=== PATIENT | male | born 1990 | race Caucasian/White ===

== ENCOUNTER 2024-03-29 00:46 | Inpatient (IN) | payer OTHER ==
[~2024-03-29] VITALS: Ht 172.7 cm; Wt 79.2 kg
[2024-03-29 01:49] LABS: APPEARANCE,URINE CLEAR (CLEAR); BILIRUBIN,URINE NEGATIVE (NEGATIVE); COLOR,URINE YELLOW (YELLOW); GLUCOSE, URINE (UA) NEGATIVE (NEGATIVE); KETONES,URINE NEGATIVE (NEGATIVE); LEUKOCYTE ESTERASE ,URINE NEGATIVE (NEGATIVE); NITRATE,URINE NEGATIVE (NEGATIVE); OCCULT BLOOD,URINE NEGATIVE (NEGATIVE); PROTEIN,URINE TRACE mg/dL (NEGATIVE); UROBILINOGEN,URINE <=1.0 mg/dL (<=1.0)
[2024-03-29] MEDS: ACETAMINOPHEN 500 MG TABLET PO ONE (02:06)
[2024-03-29] MEDS: MORPHINE SULFATE 2 MG/ML SYRINGE IVP ONE (02:29)
[2024-03-29 02:36] LABS: BASOPHILS % (AUTO) 0.3 % (0.0-2.0); EOSINOPHILS % (AUTO) 1.6 % (1.0-6.0); HEMATOCRIT 42.5 % (41-53); HEMOGLOBIN 14.3 g/dL (13.5-17.5); LYMPHOCYTES # (AUTO) 2.8 K/uL (1.0-4.8); LYMPHOCYTES % (AUTO) 25.6 % (22.0-44.0); MEAN CORPUSCULAR HGB CONC 33.7 G/dL (31.0-37.0); MEAN CORPUSCULAR VOLUME 86 fL (80-100); MONOCYTES # (AUTO) 0.8 K/uL (0.1-1.0); MONOCYTES % (AUTO) 7.4 % (2.0-9.0); NEUTROPHILS % (AUTO) 65.1 % (40.0-70.0); PLATELET COUNT (AUTO) 213 K/uL (150-450); RED BLOOD CELL COUNT(AUTO) 4.94 MIL/uL (4.50-5.90); RED CELL DISTRIBUTION WIDTH 14.2 % (11.5-14.5); WHITE BLOOD COUNT (AUTO) 10.7 K/uL (4.5-11.0)
[2024-03-29 02:47] LABS: ANION GAP 7 mmol/L (8-16); CALCIUM, TOTAL 8.4 mg/dL (8.8-10.5); CARBON DIOXIDE 30 mmol/L (22-29); CHLORIDE 104 mmol/L (98-107); CREATININE 1.05 mg/dL (0.60-1.30); GLOMERULAR FILTR. RATE CALC > 60 mL/min (>60); GLUCOSE,RANDOM 95 mg/dL (70-110); POTASSIUM 3.9 mmol/L (3.5-5.1); SODIUM SERUM 141 mmol/L (136-145); UREA NITROGEN, BLOOD 13 mg/dL (7-18)
[2024-03-29 02:52] LABS: TROPONIN I-HIGH SENSITIVITY 11 ng/L (<76)
[2024-03-29 03:00] LABS: B-TYPE NATRIURETIC PEPTIDE 10 pg/mL (0-100)
[2024-03-29 03:01] LABS: CREATINE KINASE, TOTAL ONLY 236 U/L (39-308)
[2024-03-29] MEDS ORDERED: ONDANSETRON HCL 4 MG/2 ML VIAL IVP PRN (05:30)
[2024-03-29 06:55] LABS: TROPONIN I-HIGH SENSITIVITY 12 ng/L (<76)
[2024-03-29 08:00] VITALS: BP 127/76; PULSE 58; RESP 18; TEMP 98.6; O2SAT 99
[2024-03-29] MEDS: HEPARIN SODIUM,PORCINE 5,000 UNITS/ML VIAL SQ SCH (09:11)
[2024-03-29] MEDS: DOCUSATE SODIUM 100 MG CAPSULE PO SCH (09:11)
[2024-03-29 11:16] VITALS: BP 116/70; PULSE 60; RESP 19; TEMP 98.1; O2SAT 100
[2024-03-29] MEDS: KETOROLAC TROMETHAMINE 15 MG/ML VIAL IVP PRN (14:40)
[2024-03-29 14:48] VITALS: BP 122/74; PULSE 62; RESP 18; TEMP 98.3; O2SAT 100
[2024-03-29 20:41] VITALS: BP 127/69; PULSE 58; RESP 20; TEMP 98.5; O2SAT 98
[2024-03-30] VITALS: BP 118/73; PULSE 56; RESP 20; TEMP 98.2; O2SAT 97
[2024-03-30 05:00] VITALS: BP 114/70; PULSE 52; RESP 20; TEMP 98.1; O2SAT 99
[2024-03-30 07:20] LABS: BASOPHILS % (AUTO) 0.1 % (0.0-2.0); EOSINOPHILS % (AUTO) 3.7 % (1.0-6.0); HEMATOCRIT 42.4 % (41-53); HEMOGLOBIN 14.5 g/dL (13.5-17.5); LYMPHOCYTES % (AUTO) 34.2 % (22.0-44.0); MEAN CORPUSCULAR HEMOGLOBIN 29.3 pg (26.0-34.0); MEAN CORPUSCULAR HGB CONC 34.2 G/dL (31.0-37.0); MEAN CORPUSCULAR VOLUME 86 fL (80-100); MONOCYTES # (AUTO) 0.7 K/uL (0.1-1.0); MONOCYTES % (AUTO) 8.5 % (2.0-9.0); NEUTROPHILS # (AUTO) 4.6 K/uL (1.8-7.7); NEUTROPHILS % (AUTO) 53.5 % (40.0-70.0); PLATELET COUNT (AUTO) 207 K/uL (150-450); RED BLOOD CELL COUNT(AUTO) 4.95 MIL/uL (4.50-5.90); RED CELL DISTRIBUTION WIDTH 14.6 % (11.5-14.5); WHITE BLOOD COUNT (AUTO) 8.7 K/uL (4.5-11.0)
[2024-03-30 07:23] LABS: ANION GAP 7 mmol/L (8-16); CALCIUM, TOTAL 8.4 mg/dL (8.8-10.5); CARBON DIOXIDE 29 mmol/L (22-29); CHLORIDE 103 mmol/L (98-107); CREATININE 0.97 mg/dL (0.60-1.30); GLOMERULAR FILTR. RATE CALC > 60 mL/min (>60); GLUCOSE,RANDOM 82 mg/dL (70-110); POTASSIUM 3.9 mmol/L (3.5-5.1); SODIUM SERUM 139 mmol/L (136-145); UREA NITROGEN, BLOOD 17 mg/dL (7-18)
[2024-03-30 09:05] VITALS: BP 108/68; PULSE 43; RESP 20; TEMP 97.6; O2SAT 98
[2024-03-30 13:05] VITALS: BP 120/75; PULSE 58; RESP 20; TEMP 98.3; O2SAT 98
[2024-03-30 18:01] VITALS: BP 128/84; PULSE 59; RESP 20; TEMP 98.4; O2SAT 98
[2024-03-30] MEDS ORDERED: ATROPINE SULFATE 0.1 MG/ML 10 ML SYRINGE IVP PRN (19:15)
[2024-03-30 21:23] VITALS: BP 111/69; PULSE 63; RESP 20; TEMP 98.5; O2SAT 98
[2024-03-31 01:20] VITALS: BP 110/69; PULSE 49; RESP 20; TEMP 98.1; O2SAT 99
[2024-03-31 04:08] VITALS: BP 111/70; PULSE 44; RESP 20; TEMP 98; O2SAT 97
[2024-03-31 07:29] LABS: ANION GAP 6 mmol/L (8-16); CALCIUM, TOTAL 8.9 mg/dL (8.8-10.5); CARBON DIOXIDE 30 mmol/L (22-29); CHLORIDE 103 mmol/L (98-107); CREATININE 1.01 mg/dL (0.60-1.30); GLOMERULAR FILTR. RATE CALC > 60 mL/min (>60); GLUCOSE,RANDOM 83 mg/dL (70-110); POTASSIUM 4.3 mmol/L (3.5-5.1); SODIUM SERUM 139 mmol/L (136-145); THYROID STIMULATING HORMONE 3.89 uIU/mL (0.36-3.74); UREA NITROGEN, BLOOD 18 mg/dL (7-18)
[2024-03-31 09:18] LABS: TROPONIN I-HIGH SENSITIVITY 7 ng/L (<76)
[2024-03-31 10:07] VITALS: BP 118/66; PULSE 55; RESP 18; TEMP 98; O2SAT 98
[2024-03-31 15:33] VITALS: BP 119/69; PULSE 63; RESP 18; TEMP 98.4; O2SAT 96
[2024-03-31 19:40] VITALS: BP 105/65; PULSE 66; RESP 18; TEMP 97.4; O2SAT 97
[2024-04-01 00:26] VITALS: BP 129/65; PULSE 71; RESP 18; TEMP 98.6; O2SAT 96
[2024-04-01 04:00] VITALS: BP 105/67; PULSE 54; RESP 18; TEMP 98; O2SAT 97
[2024-04-01 08:11] VITALS: BP 129/76; PULSE 58; RESP 19; TEMP 98; O2SAT 99
[2024-04-01 16:07] VITALS: BP 116/69; PULSE 66; RESP 18; TEMP 97.9; O2SAT 98
== END 2024-04-01 16:15 | DRG 563 ==
LOC: EMS 00:46 → EDH 05:27 → 5S 08:00
PROVIDERS: ADMIT Internal Medicine; ATTEND Internal Medicine
PROC: 2W3BX1Z Immobilization of Left Upper Arm using Splint (ICD-10-PCS; principal; 2024-03-29)
DX: S42.022A Displaced fracture of shaft of left clavicle, initial encounter for closed fracture (principal); E87.3 Alkalosis; R55 Syncope and collapse; R00.1 Bradycardia, unspecified; M95.8 Other specified acquired deformities of musculoskeletal system; W18.39XA Other fall on same level, initial encounter; Y93.89 Activity, other specified; Y92.148 Other place in prison as the place of occurrence of the external cause; Y99.8 Other external cause status
CPT/HCPCS: 29105; 70450; 71045; 72125; 80048; 81003; 82550; 83735; 83880; 84439; 84443; 84484; 85025; 93005; 93306; 99285; J1644; J1885; J2270; 36415-L1; 36415-TC